=== PATIENT | female | born 1945 | race Caucasian/White ===

== ENCOUNTER 2018-08-16 09:14 | Emergency (ER) | payer OTHER ==
[~2018-08-16] VITALS: Ht 157.5 cm; Wt 139.3 kg
[2018-08-16] MEDS ORDERED: SYMBICORT80 MCG/4.1 INH (09:30)
[2018-08-16] MEDS ORDERED: PEPCID40 MG PO (09:30)
[2018-08-16] MEDS ORDERED: IBUPROFEN 800800 M1 PO (09:31)
[2018-08-16] MEDS ORDERED: ASPIR-LOW81 MG PO (09:31)
[2018-08-16] MEDS ORDERED: COZAAR 25 MG TA25 M1 PO (09:31)
[2018-08-16] MEDS ORDERED: HYDROCHLOROTHIA25 M1 PO (09:32)
[2018-08-16] MEDS ORDERED: SYNTHROID75 MCG PO (09:32)
[2018-08-16] MEDS ORDERED: LOVASTATIN 20 M20 MG PO (09:33)
[2018-08-16] MEDS ORDERED: FLUOXETINE HCL40 MG PO (09:33)
[2018-08-16] MEDS ORDERED: XANAX 0.25 MG0.25 MG PO (09:34)
[2018-08-16] MEDS ORDERED: VENTOLIN HFA 1818 GM INH (09:34)
[2018-08-16] MEDS ORDERED: XANAX 0.5 MG0.5 MG PO (09:34)
[2018-08-16 11:04] LABS: HEMOGLOBIN 13.4 gm/dL (12.0-15.0); MCH 32.5 pg (26.0-34.0); MCHC 33.4 g/dL (28.0-37.0); MCV 97.3 fL (80.0-100.0); MPV 7.8 fl. (7.2-11.1); NUCLEATED RBCS 0 /100WBC; PLATELET COUNT* 280 thou/uL (150-400); RBC 4.11 mil/uL (4.20-5.00); RDW-CV 13.3 % (10.5-14.5)
[2018-08-16 11:13] LABS: ANION GAP 10 mmol/L (7-16); BUN 26 mg/dL (7-18); CALCIUM 9.1 mg/dL (8.5-10.1); CHLORIDE 100 mmol/L (98-107); CO2 27 mmol/L (21-32); GLUCOSE 124 mg/dL (70-99); POTASSIUM 4.2 mmol/L (3.5-5.1); SODIUM 137 mmol/L (136-145)
[2018-08-16 11:19] LABS: ALBUMIN 3.4 g/dL (3.4-5.0); ALKALINE PHOSPHATASE 108 U/L (46-116); SGOT 16 U/L (15-37); SGPT 29 U/L (30-65); TOTAL BILIRUBIN 0.5 mg/dL (<0.1-1.0); TOTAL PROTEIN 8.4 g/dL (6.4-8.2); TROPONIN-I LEVEL <0.06 ng/mL (<0.06)
[2018-08-16 11:59] LABS: ABSOLUTE EOSINOPHILS 0.2 thou/uL (0.0-0.7); ABSOLUTE LYMPHOCYTES 2.6 thou/uL (0.8-5.3); ABSOLUTE MONOCYTES 0.9 thou/uL (0.0-1.2); ABSOLUTE NEUTROPHILS 13.4 thou/uL (1.6-8.1)
[2018-08-16 12:00] LABS: PLATELET ESTIMATE ADEQUATE
[2018-08-16] MEDS ORDERED: IPRAT-ALBUT 0.5-3 ML PO (13:27)
[2018-08-16 14:01] VITALS: BP 151/76
--- NOTE | 2018-08-16 17:03 | EKG ---
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1945 Requested By: Gayle Pulliam Order Number: [id number] MD: Jose Alfredo Cabral Measurements Intervals [place] Rate: 71 P: 20 MN: 155 QRS: 16 QRSD: 104 T: 36 QT: 386 QTc: 420 Interpretive Statements Sinus rhythm Abnormal R-wave progression, late transition No previous ECG available for comparison Electronically Signed On 08-16-2018 17:02:49 RIGGING HELPER by Jose Alfredo Cabral [email or web address] <ELECTRONICALLY SIGNED> By: Jose Alfredo Cabral MD, [facility] 08/16/18 1702 1106 1106 Jose Alfredo Cabral MD, FACC /EPI
== END 2018-08-16 14:02 | disposition home or self-care (01) ==
LOC: M.ERS 09:14
PROVIDERS: Personal Emergency Response Attendant
DX: J45.901 Unspecified asthma with (acute) exacerbation (principal); J06.9 Acute upper respiratory infection, unspecified; M79.7 Fibromyalgia; E03.9 Hypothyroidism, unspecified; K21.9 Gastro-esophageal reflux disease without esophagitis; F32.9 Major depressive disorder, single episode, unspecified; E78.5 Hyperlipidemia, unspecified; I10 Essential (primary) hypertension; E11.9 Type 2 diabetes mellitus without complications; F41.9 Anxiety disorder, unspecified

== ENCOUNTER 2019-03-12 12:36 | Emergency (ER) | payer OTHER ==
[~2019-03-12] VITALS: Ht 160 cm; Wt 158.8 kg
[~2019-03-12 12:36] MED LIST: ASPIR-LOW81 MG PO; COZAAR 25 MG TA25 M1 PO; FLUOXETINE HCL40 MG PO; HYDROCHLOROTHIA25 M1 PO; IBUPROFEN 800800 M1 PO; IPRAT-ALBUT 0.5-3 ML PO; LOVASTATIN 20 M20 MG PO; PEPCID40 MG PO; SYMBICORT80 MCG/4.1 INH; SYNTHROID75 MCG PO; VENTOLIN HFA 1818 GM INH; XANAX 0.25 MG0.25 MG PO; XANAX 0.5 MG0.5 MG PO
[2019-03-12 12:55] LABS: ABSOLUTE BASOPHILS 0.1 thou/uL (0.0-0.2); ABSOLUTE EOSINOPHILS 0.6 thou/uL (0.0-0.7); ABSOLUTE LYMPHOCYTES 1.9 thou/uL (0.8-5.3); ABSOLUTE MONOCYTES 0.6 thou/uL (0.0-1.2); ABSOLUTE NEUTROPHILS 7.7 thou/uL (1.6-8.1); BASOPHILS 0.7 %; EOSINOPHILS 5.4 %; HEMATOCRIT 34.6 % (37.0-47.0); HEMOGLOBIN 11.6 gm/dL (12.0-15.0); LYMPHOCYTES 17.7 %; MCH 32.2 pg (26.0-34.0); MCHC 33.6 g/dL (28.0-37.0); MCV 95.9 fL (80.0-100.0); MONOCYTES 5.1 %; MPV 8.1 fl. (7.2-11.1); NUCLEATED RBCS 0 /100WBC; PLATELET COUNT* 227 thou/uL (150-400); POLYS 71.1 %; RBC 3.61 mil/uL (4.20-5.00); RDW-CV 13.5 % (10.5-14.5); WBC 10.9 thou/uL (4.0-11.0)
[2019-03-12] MEDS ORDERED: VENTOLIN HFA 1818 GM INH (13:05)
[2019-03-12] MEDS ORDERED: CARDIZEM30 MG PO (13:06)
[2019-03-12 13:16] LABS: APTT 24.2 Seconds (25.0-31.3); PROTIME 10.5 Seconds (9.20-11.50)
[2019-03-12 13:21] LABS: ANION GAP 9 mmol/L (7-16); BUN 25 mg/dL (7-18); CALCIUM 9.3 mg/dL (8.5-10.1); CHLORIDE 104 mmol/L (98-107); CO2 28 mmol/L (21-32); GLUCOSE 112 mg/dL (70-99); POTASSIUM 3.9 mmol/L (3.5-5.1); SODIUM 141 mmol/L (136-145)
[2019-03-12 13:33] LABS: ALBUMIN 3.1 g/dL (3.4-5.0); ALKALINE PHOSPHATASE 103 U/L (46-116); SGOT 12 U/L (15-37); SGPT 23 U/L (30-65); TOTAL BILIRUBIN 0.4 mg/dL (<0.1-1.0); TOTAL PROTEIN 7.7 g/dL (6.4-8.2); TROPONIN-I LEVEL <0.06 ng/mL (<0.06)
[2019-03-12 13:49] LABS: URINE BILIRUBIN NEGATIVE (Negative); URINE BLOOD TRACE (Negative); URINE CLARITY CLEAR; URINE COLOR YELLOW; URINE GLUCOSE-RANDOM NEGATIVE (Negative); URINE KETONES NEGATIVE (Negative); URINE LEUKOCYTES-REFLEX NEGATIVE (Negative); URINE NITRITE-REFLEX NEGATIVE (Negative); URINE PROTEIN 2+ (Negative); URINE SPECIFIC GRAVITY 1.025 (1.005-1.030); URINE UROBILINOGEN 0.2 E.U./dl (0.2-1.0)
[2019-03-12 13:59] LABS: BACTERIA-REFLEX 1-9 Few /HPF (None Seen); CASTS None Seen /LPF (None Seen); CRYSTALS None Seen /LPF (None Seen); MUCUS None Seen strn/LPF (None Seen); SQUAMOUS 4-10 Moderate /LPF (0-3); URINE RBC 0-2 Rare /HPF (0-2); URINE WBC-REFLEX 0-5 Rare /HPF (0-5)
[2019-03-12] MEDS ORDERED: CARAFATE 1 GM TA1 GM PO (14:56)
[2019-03-12 15:01] VITALS: BP 139/70
--- NOTE | 2019-03-13 12:31 | EKG ---
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1945 Requested By: Claudia Dickinson Order Number: [id number] MD: Armani Vergara Measurements Intervals [place] Rate: 81 P: 65 LA: 195 QRS: 26 QRSD: 97 T: 22 QT: 482 QTc: 560 Interpretive Statements Sinus rhythm Supraventricular bigeminy RSR' in V1 or V2, right VCD or RVH Prolonged QT interval Compared to ECG 08/16/2018 11:06:57 Atrial premature complex(es) now present RSR' in V1 or V2 now present Prolonged QT interval now present Electronically Signed On 03-13-2019 12:31:23 CDT by Armani Vergara [email or web address] <ELECTRONICALLY SIGNED> By: Armani Vergara MD, FACC 03/13/19 1231 1241 1241 Armani Vergara MD, FAC /EPI
== END 2019-03-12 15:03 | disposition home or self-care (01) ==
LOC: M.ERS 12:36
PROVIDERS: Physician Assistant
DX: K21.9 Gastro-esophageal reflux disease without esophagitis (principal); M79.7 Fibromyalgia; E03.9 Hypothyroidism, unspecified; J45.909 Unspecified asthma, uncomplicated; F32.9 Major depressive disorder, single episode, unspecified; I10 Essential (primary) hypertension; E11.9 Type 2 diabetes mellitus without complications; E78.5 Hyperlipidemia, unspecified; F41.9 Anxiety disorder, unspecified; Z88.6 Allergy status to analgesic agent; Z88.8 Allergy status to other drugs, medicaments and biological substances

== ENCOUNTER → 2019-03-29 | Outpatient (CLI) | payer OTHER ==
[~2019-03-29] MED LIST changes: +CARAFATE 1 GM TA1 GM PO; +CARDIZEM30 MG PO
--- NOTE | 2019-03-29 13:51 | 2DMMODE ---
[place] [address] 2 D/M-MODE ECHOCARDIOGRAM Name: SEVEN CHILDRESS Room: [facility]#: [id number] Admission: 03/29/19 Attend Phys: Patricia Brennan Discharge: Date of : 49 Date of Service: 03/29/19 1350 Report #: [id number] THIS REPORT FOR: //name// APPROVED REPORT Study performed: 03/29/2019 10:40:55 EXAM: Comprehensive 2D, Doppler, and color-flow Echocardiogram Patient Location: Out-Patient BSA: 2.43 HR: 66 bpm BP: 133/73 mmHg Other Information Study Quality: Fair Indications Cardiomegaly 2D Dimensions IVSd: 13.45 (7-11mm) LVOT Diam: 20.33 (18-24mm) LVDd: 47.30 mm PWd: 12.04 (7-11mm) Ascending Ao: 32.45 (22-36mm) LVDs: 32.44 (25-40mm) Aortic Root: 24.82 mm Volumes Left Atrial Volume (Systole) LA ESV Index: 19.20 mL/m2 Aortic Valve AoV Peak Isidro.: 1.65 m/s AO Peak Gr.: 10.89 mmHg LVOT Max P.69 mmHg AO Mean Gr.: 6.32 mmHg LVOT Mean P.88 mmHg LVOT Max V: 1.47 m/s AO V2 VTI: 43.52 cm LVOT Mean V: 0.90 m/s DEYANIRA (VTI): 2.59 cm2 LVOT V1 VTI: 34.72 cm Mitral Valve E/A Ratio: 0.95 MV Decel. Time: 227.91 ms MV E Max Isidro.: 1.00 m/s MV PHT: 66.09 ms MVA (PHT): 3.33 [place]2 [place] [address] 2 D/M-MODE ECHOCARDIOGRAM Name: CHILDRESSSEVENNASRIN DALE Room: [facility]#: [id number] Admission: 03/29/19 Attend Phys: Patricia Brennan Discharge: Date of : 49 Date of Service: 03/29/19 1350 Report #: [id number] TDI E/Lateral E': 10.00 E/Medial E': 10.00 Medial E' Isidro.: 0.10 m/s Lateral E' Isidro.: 0.10 m/s Pulmonary Valve PV Peak Isidro.: 1.31 m/s PV Peak Gr.: 6.87 mmHg Tricuspid Valve RAP Estimate: 5.00 mmHg TR Peak Gr.: 30.25 mmHg RVSP: 35.25 mmHg PA Pressure: 35.25 mmHg Left Ventricle The left ventricle is normal size. There is normal LV segmental wall motion. Mild concentric left ventricular hypertrophy. Left ventricular systolic function is normal. The left ventricular ejection fraction is within the normal range. LVEF is 55-60%. Right Ventricle The right ventricle is normal size. The right ventricular systolic function is normal. Atria The left atrium size is normal. The right atrium size is normal. Aortic Valve The aortic valve is normal in structure. No aortic regurgitation is present. There is no aortic valvular stenosis. Mitral Valve The mitral valve is normal in structure. There is no mitral valve regurgitation noted. No evidence of mitral valve stenosis. Tricuspid Valve The tricuspid valve is normal in structure. Mild tricuspid regurgitation. Pulmonic Valve Pulmonic valve is not well visualized. There is no pulmonic valvular regurgitation. Great Vessels The aortic root is normal in size. IVC is [place] [address] 2 D/M-MODE ECHOCARDIOGRAM Name: SEVEN CHILDRESS Room: [facility]#: [id number] Admission: 03/29/19 Attend Phys: Patricia Brennan Discharge: Date of : 49 Date of Service: 03/29/19 1350 Report #: [id number] collapses >50% with inspiration. Pericardium There is no pericardial effusion. <Conclusion> Mild concentric left ventricular hypertrophy. LVEF is 55-60%. <ELECTRONICALLY SIGNED> By: Armani Vergara MD, [facility] 03/29/19 1350 1350 1350 Armani Vergara MD, [facility] /INF
== END ==
LOC: M.CRD 10:32
DX: I36.1 Nonrheumatic tricuspid (valve) insufficiency (principal); I51.7 Cardiomegaly

== ENCOUNTER 2019-04-12 11:42 | Emergency (ER) | payer OTHER ==
[~2019-04-12] VITALS: Ht 160 cm; Wt 157.8 kg
[2019-04-12] MEDS ORDERED: CARDIZEM CD120 MG PO (11:58)
[2019-04-12] MEDS ORDERED: TRIAMCINOLONE A80 G2 TOP (11:59)
[2019-04-12 12:26] LABS: ABSOLUTE BASOPHILS 0.1 thou/uL (0.0-0.2); ABSOLUTE EOSINOPHILS 0.4 thou/uL (0.0-0.7); ABSOLUTE LYMPHOCYTES 1.6 thou/uL (0.8-5.3); ABSOLUTE MONOCYTES 0.5 thou/uL (0.0-1.2); ABSOLUTE NEUTROPHILS 7.1 thou/uL (1.6-8.1); BASOPHILS 0.9 %; EOSINOPHILS 3.7 %; HEMATOCRIT 37.9 % (37.0-47.0); HEMOGLOBIN 12.8 gm/dL (12.0-15.0); LYMPHOCYTES 16.1 %; MCH 32.5 pg (26.0-34.0); MCHC 33.7 g/dL (28.0-37.0); MCV 96.4 fL (80.0-100.0); MPV 8.5 fl. (7.2-11.1); NUCLEATED RBCS 0 /100WBC; PLATELET COUNT* 250 thou/uL (150-400); POLYS 74.3 %; RBC 3.93 mil/uL (4.20-5.00); RDW-CV 13.3 % (10.5-14.5); WBC 9.6 thou/uL (4.0-11.0)
[2019-04-12 12:31] LABS: CALCIUM 9.4 mg/dL (8.5-10.1); CREATININE 1.1 mg/dL (0.6-1.3); POTASSIUM 4.2 mmol/L (3.5-5.1)
[2019-04-12 12:35] LABS: ALBUMIN 3.4 g/dL (3.4-5.0); TOTAL BILIRUBIN 0.6 mg/dL (<0.1-1.0)
[2019-04-12] MEDS ORDERED: PREDNISONE50 MG PO (14:27)
[2019-04-12] MEDS ORDERED: PERCOCET PO (14:27)
[2019-04-12] MEDS ORDERED: TRAMADOL 50 MG50 MG PO (14:30)
[2019-04-12 14:47] VITALS: BP 166/59
== END 2019-04-12 14:50 | disposition home or self-care (01) ==
LOC: M.ERS 11:42
PROVIDERS: Emergency Medicine Emergency Medical Services
DX: M54.42 Lumbago with sciatica, left side (principal); I10 Essential (primary) hypertension; E11.9 Type 2 diabetes mellitus without complications; M79.7 Fibromyalgia; E03.9 Hypothyroidism, unspecified; E78.5 Hyperlipidemia, unspecified; F41.9 Anxiety disorder, unspecified; I25.10 Atherosclerotic heart disease of native coronary artery without angina pectoris; K21.9 Gastro-esophageal reflux disease without esophagitis; J45.909 Unspecified asthma, uncomplicated; F32.9 Major depressive disorder, single episode, unspecified; Z88.6 Allergy status to analgesic agent; Z88.1 Allergy status to other antibiotic agents; Z88.5 Allergy status to narcotic agent; Z88.2 Allergy status to sulfonamides; Z88.8 Allergy status to other drugs, medicaments and biological substances

== ENCOUNTER 2021-02-17 12:10 | Emergency (ER) | payer OTHER ==
[~2021-02-17] VITALS: Ht 157.5 cm; Wt 158.8 kg
[~2021-02-17 12:10] MED LIST changes: +CARDIZEM CD120 MG PO; +PERCOCET PO; +PREDNISONE50 MG PO; +TRAMADOL 50 MG50 MG PO; +TRIAMCINOLONE A80 G2 TOP
[2021-02-17 12:31] LABS: ABSOLUTE BASOPHILS 0.1 thou/uL (0.0-0.2); ABSOLUTE LYMPHOCYTES 0.7 thou/uL (0.8-5.3); ABSOLUTE MONOCYTES 0.8 thou/uL (0.0-1.2); ABSOLUTE NEUTROPHILS 6.7 thou/uL (1.6-8.1); BASOPHILS 0.7 %; HEMATOCRIT 32.6 % (37.0-47.0); HEMOGLOBIN 11.5 gm/dL (12.0-15.0); LYMPHOCYTES 8.2 %; MCH 33.8 pg (26.0-34.0); MCHC 35.3 g/dL (28.0-37.0); MCV 95.9 fL (80.0-100.0); MPV 8.1 fl. (7.2-11.1); NUCLEATED RBCS 0 /100WBC; PLATELET COUNT* 182 thou/uL (150-400); POLYS 81.1 %; RDW-CV 13.2 % (10.5-14.5); WBC 8.3 thou/uL (4.0-11.0)
[2021-02-17 12:44] LABS: CALCIUM 8.5 mg/dL (8.5-10.1)
[2021-02-17 12:55] LABS: ALBUMIN 3.2 g/dL (3.4-5.0); TOTAL BILIRUBIN 0.5 mg/dL (<0.1-1.0); TOTAL PROTEIN 7.9 g/dL (6.4-8.2)
--- NOTE | 2021-02-17 14:43 | EKG ---
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: [facility] : 1945 Requested By: Mala Marino Order Number: [id number] MD: Shaun Ernandez Measurements Intervals [place] Rate: 72 P: 45 MA: 167 QRS: 23 QRSD: 94 T: 26 QT: 400 QTc: 438 Interpretive Statements Sinus rhythm Probable left atrial enlargement RSR' in V1 or V2, probably normal variant Compared to ECG 03/12/2019 12:41:30 Atrial premature complex(es) no longer present Right ventricular hypertrophy no longer present Prolonged QT interval no longer present Electronically Signed On 02-17-2021 14:43:28 CDT by Shaun Ernandez [email or web address] <ELECTRONICALLY SIGNED> By: Sahun Ernandez MD, [facility] 02/17/21 1443 1229 1229 Shaun Ernandez MD, [facility] /EPI
[2021-02-17] MEDS ORDERED: VENTOLIN HFA 1818 GM INH (15:04)
[2021-02-17 15:58] VITALS: BP 162/76
== END 2021-02-17 16:00 | disposition home or self-care (01) ==
LOC: M.ERS 12:10
PROVIDERS: Nurse Practitioner Family
DX: U07.1 COVID-19 (principal); M79.7 Fibromyalgia; E03.9 Hypothyroidism, unspecified; K21.9 Gastro-esophageal reflux disease without esophagitis; E78.5 Hyperlipidemia, unspecified; I10 Essential (primary) hypertension; E11.9 Type 2 diabetes mellitus without complications; E66.01 Morbid (severe) obesity due to excess calories; Z88.6 Allergy status to analgesic agent; Z88.5 Allergy status to narcotic agent; Z88.1 Allergy status to other antibiotic agents; Z88.8 Allergy status to other drugs, medicaments and biological substances; Z68.44 Body mass index [BMI] 60.0-69.9, adult

== ENCOUNTER 2021-02-22 12:37 | Inpatient (IN) | payer OTHER ==
[~2021-02-22] VITALS: Ht 157.5 cm; Wt 168.0 kg
[~2021-02-22 12:37] MED LIST changes: -ASPIR-LOW81 MG PO; +CHILDREN'S ASPI81 M1 PO
[2021-02-22 12:38] VITALS: BP 154/59
[2021-02-22 13:26] LABS: HEMATOCRIT 33.9 % (37.0-47.0); MCH 32.8 pg (26.0-34.0); MCHC 35.4 g/dL (28.0-37.0); MCV 92.8 fL (80.0-100.0); MPV 7.6 fl. (7.2-11.1); NUCLEATED RBCS 0 /100WBC; PLATELET COUNT* 176 thou/uL (150-400); RBC 3.65 mil/uL (4.20-5.00); RDW-CV 13.5 % (10.5-14.5); WBC 6.1 thou/uL (4.0-11.0)
[2021-02-22 13:35] LABS: CREATININE 1.1 mg/dL (0.6-1.3); POTASSIUM 3.1 mmol/L (3.5-5.1)
[2021-02-22 13:46] LABS: ALBUMIN 2.6 g/dL (3.4-5.0); TOTAL BILIRUBIN 0.5 mg/dL (<0.1-1.0); TOTAL PROTEIN 7.3 g/dL (6.4-8.2)
[2021-02-22 14:09] LABS: ABSOLUTE LYMPHOCYTES 0.5 thou/uL (0.8-5.3); ABSOLUTE MONOCYTES 0.4 thou/uL (0.0-1.2); ABSOLUTE NEUTROPHILS 5.1 thou/uL (1.6-8.1); PLATELET ESTIMATE ADEQUATE
[2021-02-22 18:35] VITALS: BP 136/50
[2021-02-22 20:00] VITALS: BP 169/64
[2021-02-23 00:24] VITALS: BP 140/44
[2021-02-23 04:52] VITALS: BP 167/65
--- NOTE | 2021-02-23 07:30 | NUR ---
CHANGE OF SHIFT BEDSIDE REPORT GIVEN PATIENT SEEN AT BEDSIDE, IN BED RESTING ASSUMED PATIENT CARE
[2021-02-23 08:00] VITALS: BP 147/52
[2021-02-23 12:00] VITALS: BP 130/46
[2021-02-23 12:25] LABS: CALCIUM 7.9 mg/dL (8.5-10.1); POTASSIUM 3.5 mmol/L (3.5-5.1)
[2021-02-23 16:00] VITALS: BP 126/48
[2021-02-23 18:46] LABS: APTT 25.1 Seconds (25.0-31.3); PROTIME 10.4 Seconds (9.20-11.50)
[2021-02-23 20:00] VITALS: BP 127/46
--- NOTE | 2021-02-23 22:56 | NUR ---
1700 REMDESIVIR EMPTY AND HANGING ON IV POLE. DAY SHIFT FORGOT TO SCAN
[2021-02-24] VITALS (15 sets, daily range): BP systolic 135–173; BP diastolic 44–75
--- NOTE | 2021-02-24 02:06 | NUR ---
PT ALERT ORIENTED. INITAL ASSESSMENT PT O2 SAT 82% ON 50 LITERS HIGH FLOW 100%. PT PLACED ON BIPAP NOW 88-89%. 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 UP TO BSC WITH ASSIST OF ONE. BARIATRIC BED PLACED IN ROOM. PT PREFERES TO SLEEP IN RECLINER.
--- NOTE | 2021-02-24 05:57 | NUR ---
PT WOKE UP THIS AM REQUESTING TO GET BIPAP OFF. PT STATED I CAN'T BREATHE WITH BIPAP ON. PT PLACED ON HEATED HIGH FLOW 50 LITERS 100% BUT COULD NOT MAINTAIN O2 SATS. DESATURATED TO 82%. PT GIVEN XANAX GIVEN PT PLACED BACK ON BIPAP. PT TEARFUL. REASURANCE PROVIDED BY RN AND APPRENTICE COOK.
[2021-02-24 07:46] LABS: ABSOLUTE LYMPHOCYTES 0.6 thou/uL (0.8-5.3); ABSOLUTE MONOCYTES 0.6 thou/uL (0.0-1.2); ABSOLUTE NEUTROPHILS 5.6 thou/uL (1.6-8.1); BASOPHILS 0.2 %; HEMATOCRIT 35.8 % (37.0-47.0); HEMOGLOBIN 12.4 gm/dL (12.0-15.0); LYMPHOCYTES 8.3 %; MCH 32.6 pg (26.0-34.0); MCHC 34.6 g/dL (28.0-37.0); MPV 7.4 fl. (7.2-11.1); NUCLEATED RBCS 0 /100WBC; PLATELET COUNT* 245 thou/uL (150-400); POLYS 82.5 %; RBC 3.81 mil/uL (4.20-5.00); RDW-CV 13.4 % (10.5-14.5); WBC 6.8 thou/uL (4.0-11.0)
[2021-02-24 07:59] LABS: ALBUMIN 2.6 g/dL (3.4-5.0); CALCIUM 8.2 mg/dL (8.5-10.1); CREATININE 1.3 mg/dL (0.6-1.3); MAGNESIUM 2.1 mg/dL (1.8-2.4); POTASSIUM 3.5 mmol/L (3.5-5.1); TOTAL BILIRUBIN 0.4 mg/dL (<0.1-1.0); TOTAL PROTEIN 7.4 g/dL (6.4-8.2)
--- NOTE | 2021-02-24 09:52 | EKG ---
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1945 Requested By: Agustin Mendez Order Number: [id number] MD: Armani Vergara Measurements Intervals [place] Rate: 66 P: 45 GA: 160 QRS: 23 QRSD: 102 T: -11 QT: 443 QTc: 465 Interpretive Statements Sinus rhythm Borderline repolarization abnormality Compared to ECG 02/17/2021 12:29:43 No significant changes Electronically Signed On 02-24-2021 9:51:51 CDT by Armani Vergara [email or web address] <ELECTRONICALLY SIGNED> By: Armani Vergara MD, [facility] 02/24/21 0951 1253 1253 Armani Vergara MD, [facility] /EPI
[2021-02-24 13:53] LABS: BE -1.9 mmol/L (-2 to +3); PCO2 39.9 mmHg (35.0-45.0); PO2 68.7 mmHg (75.0-100.0); pH 7.379 (7.340-7.450)
--- NOTE | 2021-02-24 16:41 | CON ---
[address] [address] CONSULTATION Name: SEVEN CHILDRESS Room: [address] IN .R.#: [id number] Admission: 02/22/21 Attend Phys: Tila Arthur MD Discharge: Date of : 49 Report #: [id number] THIS REPORT FOR: cc: Patricia Brennan MD, Jennifer MD Pervez, Adeel MD ~ DATE OF CONSULTATION: 02/23/2021 REQUESTING PHYSICIAN: Dr. Arthur. INDICATION FOR CONSULTATION: Acute hypoxemic respiratory failure secondary to COVID-19. HISTORY OF PRESENT ILLNESS: This is a 75 years old female. She is a lifetime nonsmoker. She does have morbid obesity, body mass index is 64. The patient does have a history of bronchial asthma and diabetes, and she states that she is a Adventism. The patient had initially presented to the Emergency Room on the ____ was diagnosed with COVID-19. The patient, at that time, was stable on room air and was discharged home. The patient is now admitted with the development of acute respiratory failure secondary to COVID-19. The patient is now noted to be saturating only 70% on room air initially. She initially was placed on 15 liters oxygen via a high-flow nasal cannula and was maintaining O2 saturations in the low 90s with this. Since yesterday, there has been worsening in the patient's oxygen needs. Currently, we are up to 100% FiO2 on a heated high-flow nasal oxygen and she is barely saturating in the low 90s. She still does remain comfortable. She is hemodynamically stable and she is sitting comfortably in a chair. She does state that she is short of breath. She is also coughing, bringing up only small amounts of sputum. No chest pain. She has had a fever. There is no runny nose or sore throat. No swelling of lower extremities or calf pain. The patient does state that she has had changes in her appetite, has been having night sweats, has had malaise and weakness. She has had disturbed sleep at night as well as sleepiness during the day. There is no change in these, known recently. REVIEW OF SYSTEMS: For 12 points is negative except as mentioned above. PAST MEDICAL HISTORY: Morbid obesity, body mass index 64, bronchial asthma, diabetes, gastroesophageal reflux disease, fibromyalgia, hypothyroidism, depression, hyperlipidemia, hypertension, anxiety. She appears to have significant obstructive sleep apnea, it is not known to me as to whether this is previously diagnosed or not. The patient did not describe use of a positive airway pressure device or oxygen at home. Her last echocardiogram is from 2018, shows a left ventricular ejection fraction of 55-60%, [place] [address] CONSULTATION Name: SEVEN CHILDRESS Room: [address] IN .R.#: [id number] Admission: 02/22/21 Attend Phys: Tila Arthur MD Discharge: Date of : 49 Report #: [id number] is 35. SOCIAL HISTORY: Lifetime nonsmoker. No known history of heavy alcohol use or illegal drug use. The patient told me that she is a Adventism. CURRENT MEDICATIONS: List in [facility] reviewed. HOME MEDICATIONS: List also in [facility] reviewed. FAMILY HISTORY: No pertinent family history is known at this time. ALLERGIES: THERE ARE VARIOUS ALLERGIES LISTED ON THE RECORDS INCLUDING CELEXA, ZOLOFT, CIPRO, VICODIN, CODEINE AND LISINOPRIL. IT IS NOT KNOWN TO ME TO WHETHER THE PATIENT IN FACT IS ALLERGIC TO ALL OF THESE MEDICATIONS. PHYSICAL EXAMINATION:: GENERAL: She is alert, awake and oriented. VITAL SIGNS: Has a pulse of 60 and a blood pressure of 130/50. She was saturating 92% on heated high-flow nasal cannula 55 liters flow, 100% oxygen. Respiratory rate was 20-22, afebrile with a temperature of 36.4. Body mass index of 64. She does appear to be morbidly obese. HEENT: Head is normocephalic and atraumatic. Pupils are equal and reactive. There is no throat erythema. Narrow airway, Mallampati 4. NECK: Does not show raised JVP, asymmetry, mass or lymph nodes. CHEST: Symmetrical expansion on inspection and palpation. On auscultation, breath sounds are bilaterally equal, but decreased. I do not hear any added sounds. HEART: Regular. There is no murmur. ABDOMEN: Soft and nontender. EXTREMITIES: Lower extremities, no edema, no calf tenderness. SKIN: Dry and intact. NEUROLOGIC: Moves all extremities bilaterally equally and spontaneously with no focal deficit identified. LABORATORY DATA: The patient's lab work is in [facility]. This is reviewed. I added a basic metabolic profile to the potassium level done this morning and reviewed it. I ordered coagulation studies as well as a D-dimer now and these are pending. I ordered a repeat chest x-ray now and this is pending. Chest x-ray yesterday shows extensive bilateral infiltrates consistent with ARDS secondary to COVID-19, new since the 12th in [facility] reviewed. Her COVID-19 antigen is positive. ASSESSMENT AND PLAN: 1. Acute hypoxemic respiratory failure secondary to COVID-19. Recommend [facility] [address] [place] [address] CONSULTATION Name: SEVEN CHILDRESS Room: [address] IN M.R.#: [id number] Admission: 02/22/21 Attend Phys: Tila Arthur MD Discharge: Date of : 49 Report #: [id number] continuing to titrate oxygen. I strongly recommended that she should wear a BiPAP while asleep. It appears to me that the patient has fairly significant previously undiagnosed obstructive sleep apnea. The patient, however, declined use of BiPAP at this time against my advice. I would recommend prone positioning and if possible, continue out of bed to chair. If not prone, then recommend on sides, recommend avoiding sleeping supine. 2. COVID-19 with acute respiratory distress syndrome. Recommend continuing with dexamethasone. I will go ahead and give her an additional dose now. We will reassess dexamethasone dose tomorrow. Agree with remdesivir and Actemra as already ordered by Dr. Arthur. I discussed with the patient regarding the use of convalescent plasma. The patient responded by stating that she is a Adventism. 3. Bronchial asthma. See discussion above. Also, agree with Salty. We will go ahead and give her Singulair as well. 4. Morbid obesity with obstructive sleep apnea. It appears to me that she has obstructive sleep apnea, not previously diagnosed. The patient is declining BiPAP against my advice. 5. Evaluation for thromboembolic phenomena. I will get coagulation studies, including a D-dimer now. I increased Lovenox for now to intermediate dose. If the D-dimer is elevated, then I would recommend proceeding with venous Dopplers and in that case, we will also assess as to whether the patient can be safely transported for a CAT scan. She will be high risk for transport though at this time. The other option, in case the D-dimer comes back elevated, would be to increase Lovenox to full dose empirically pending further evaluation. Regardless, we will go ahead and obtain an echocardiogram as well. 6. Fluid and electrolytes. We will run her on the sulfate drier machine operator side as the potassium has been on the lower side. I ordered one dose of Aldactone. We will assess from more diuresis including Lasix tomorrow. 7. History of diabetes. 8. Adventism. 9. Gastroesophageal reflux disease. Proton pump inhibitor. 10. Clostridium difficile prophylaxis, Lactinex. Thanks for this consultation. <ELECTRONICALLY SIGNED> By: Aiden Hill MD 02/24/21 1641 1624 [id number] Hill MD /nt
--- NOTE | 2021-02-24 16:56 | 2DMMODE ---
[place] [address] 2 D/M-MODE ECHOCARDIOGRAM Name: SEVEN CHILDRESS Room: [address] IN [facility]#: [id number] Admission: 02/22/21 Attend Phys: Tila Arthur, Discharge: Date of : 49 Date of Service: 02/24/21 1656 Report #: [id number] THIS REPORT FOR: cc: Patricia Brennan MD, Jennifer MD Blick,Armani Friedman MD [facility] ~ APPROVED REPORT Study performed: 02/24/2021 16:15:30 EXAM: Comprehensive 2D, Doppler, and color-flow Echocardiogram Patient Location: In-Patient Room #: [facility] Status: routine BSA: 2.43 HR: 60 bpm BP: 141/52 mmHg Rhythm: NSR Other Information Study Quality: Fair Indications Dyspnea 2D Dimensions IVSd: 12.65 (7-11mm) LVOT Diam: 20.15 (18-24mm) LVDd: 54.11 mm PWd: 12.46 (7-11mm) Ascending Ao: 27.88 (22-36mm) LVDs: 24.93 (25-40mm) Aortic Root: 28.14 mm Volumes Left Atrial Volume (Systole) LA ESV Index: 32.00 mL/m2 Aortic Valve AoV Peak Isidro.: 1.82 m/s AO Peak Gr.: 13.27 mmHg LVOT Max P.02 mmHg AO Mean Gr.: 6.57 mmHg LVOT Mean P.74 mmHg LVOT Max V: 1.66 m/s AO V2 VTI: 44.37 cm LVOT Mean V: 1.10 m/s DEYANIRA (VTI): 2.75 cm2 LVOT V1 VTI: 38.24 [place] [address] 2 D/M-MODE ECHOCARDIOGRAM Name: SEVEN CHILDRESS Room: [address] IN ..#: [id number] Admission: 02/22/21 Attend Phys: Tila Arthur, Discharge: Date of : 49 Date of Service: 02/24/21 1656 Report #: [id number] Mitral Valve E/A Ratio: 1.09 MV Decel. Time: 207.19 ms MV E Max Isidro.: 1.34 m/s MV PHT: 60.09 ms MVA (PHT): 3.66 cm2 TDI E/Lateral E': 10.31 E/Medial E': 11.17 Medial E' Isidro.: 0.12 m/s Lateral E' Isidro.: 0.13 m/s Pulmonary Valve PV Peak Isidro.: 1.45 m/s PV Peak Gr.: 8.43 mmHg Left Ventricle The left ventricle is normal size. There is normal LV segmental wall motion. Mild concentric left ventricular hypertrophy. Left ventricular systolic function is normal. The left ventricular ejection fraction is within the normal range. LVEF is 55-60%. The left ventricular diastolic function is normal. Right Ventricle The right ventricle is normal size. The right ventricular systolic function is normal. Atria Left atrium is mildly dilated. The right atrium size is normal. Aortic Valve The Aortic valve is sclerotic. No aortic regurgitation is present. There is no aortic valvular stenosis. Mitral Valve The mitral valve is normal in structure. Mild mitral annular calcification. There is no mitral valve regurgitation noted. No evidence of mitral valve stenosis. Tricuspid Valve The tricuspid valve is normal in structure. Unable to assess PA pressure. Trace tricuspid regurgitation. Pulmonic Valve The pulmonary valve is normal in structure. There is no pulmonic valv[place] [address] 2 D/M-MODE ECHOCARDIOGRAM Name: SEVEN CHILDRESS Room: [address] IN ..#: [id number] Admission: 02/22/21 Attend Phys: Tila Arthur, Discharge: Date of : 49 Date of Service: 02/24/21 1656 Report #: [id number] Great Vessels The aortic root is normal in size. IVC is normal in size and collapses >50% with inspiration. Pericardium There is no pericardial effusion. <Conclusion> Mild concentric left ventricular hypertrophy. LVEF is 55-60%. Left atrium is mildly dilated. The Aortic valve is sclerotic. <ELECTRONICALLY SIGNED> By: Armani Vergara MD, [facility] 02/24/21 1656 165 55 Armani Vergara MD, FACC /INF
[2021-02-24 18:55] LABS: CALCIUM 8.3 mg/dL (8.5-10.1); CREATININE 1.2 mg/dL (0.6-1.3); POTASSIUM 3.5 mmol/L (3.5-5.1)
[2021-02-25] VITALS (44 sets, daily range): BP systolic 139–185; BP diastolic 51–74
[2021-02-25 04:52] LABS: HEMATOCRIT 35.6 % (37.0-47.0); HEMOGLOBIN 12.5 gm/dL (12.0-15.0); MCH 32.4 pg (26.0-34.0); MCV 92.5 fL (80.0-100.0); MPV 8.2 fl. (7.2-11.1); NUCLEATED RBCS 0 /100WBC; PLATELET COUNT* 271 thou/uL (150-400); RBC 3.85 mil/uL (4.20-5.00); RDW-CV 13.4 % (10.5-14.5); WBC 8.6 thou/uL (4.0-11.0)
[2021-02-25 05:01] LABS: ALBUMIN 2.5 g/dL (3.4-5.0); CALCIUM 8.3 mg/dL (8.5-10.1); CREATININE 1.2 mg/dL (0.6-1.3); MAGNESIUM 1.9 mg/dL (1.8-2.4); POTASSIUM 3.3 mmol/L (3.5-5.1); TOTAL BILIRUBIN 0.4 mg/dL (<0.1-1.0); TOTAL PROTEIN 7.2 g/dL (6.4-8.2)
--- NOTE | 2021-02-25 06:28 | NUR ---
ASSUMED CARE AT 1900H, ON BIPAP AT 100% AND 02 SAT 82%-91%. ORIENTED AND WEAK. ON PRECEDEX AND TURNED OFF DUE TO PT WAS MORE DROWSY. PULMO INFORMED WITH ORDERS MADE AND CARRIED OUT. FAMILY UPDATE GIVEN. PT STILL 02 SAT <88%, CALLED PULMO AGAIN WITH ORDERS CARRIED OUT. PT AGREED TO BE INTUBATED AND DO CPR IN CASE NEEDED. SATURATION DECREASED WHEN PT ASLEEP. CONTINUE MONITORING AND TOWARDS GOALS.
[2021-02-25 08:21] LABS: BE 2.7 mmol/L (-2 to +3); PO2 65.4 mmHg (75.0-100.0); pH 7.445 (7.340-7.450)
[2021-02-25 09:08] LABS: ABSOLUTE MONOCYTES 0.4 thou/uL (0.0-1.2); ABSOLUTE NEUTROPHILS 7.1 thou/uL (1.6-8.1)
[2021-02-25 09:09] LABS: PLATELET ESTIMATE ADEQUATE
--- NOTE | 2021-02-25 09:41 | NUR ---
Patient admitted for respiratory failure and COVID 19. Due to COVID isolation CM Dir reached out to (Ran). Per , patient lives in a single home house with her and stepson. No stairs in the home. Patient was independent with ADLs and was doing some driving prior to admission. No hx of DME, O2, bipap/cpap, BHS, dialysis and infusion therapy. No hx of HH, SNF or rehab. PCP is Patricia Brennan ([place], [place]). Per nurse, patient may need to be intubated and patient is agreeable if needed. Per , patient does not have DPOA paperwork in place. Asked both nursing and to ask patient if she would like to complete paperwork with CM. Awaiting response from both nursing and . Patient remains on bipap at this time at 100% FiO2. CM to continue to follow
--- NOTE | 2021-02-25 10:21 | NUR ---
RIGHT CEPHALIC VESSEL ACCESED FOR 5 [place] TRIPLE LUMEN PICC. LINE PRE-TRIMMD TO 42CM AND ADVANCED TO THE ZERO ANAYELI WITH MINOR RESISTANCE MET. UPPER ARM CIRCUMFERENCE ABOVE INSERTION SITE = 19 1/2". SHERLOCK MAGNET AND 3CG CONFIRMATION OF TIP TERMINATION AT THE CAVOATRIAL JUNCTION APPRECIATED. LINE WAS MANIPULATED WITH SEVERAL ATTEMPTS BEFORE 3CG WAS POSITIVE FOR MAXIMUM P. GUIDE WIRE REMOVED, LINE FLUSHED AND INSERTION SITE DRESSED. REPORT GIVEN TO VIDHI COLBERT.
[2021-02-25 13:21] LABS: CALCIUM 8.4 mg/dL (8.5-10.1); CREATININE 1.2 mg/dL (0.6-1.3); POTASSIUM 3.4 mmol/L (3.5-5.1)
[2021-02-25 13:26] LABS: APTT 26.9 Seconds (25.0-31.3); INR 1.1; PROTIME 11.9 Seconds (9.20-11.50)
[2021-02-26] VITALS (29 sets, daily range): BP systolic 137–220; BP diastolic 55–144
[2021-02-26 03:25] LABS: CALCIUM 8.4 mg/dL (8.5-10.1); CREATININE 1.1 mg/dL (0.6-1.3); POTASSIUM 3.9 mmol/L (3.5-5.1)
[2021-02-26 03:28] LABS: HEMATOCRIT 36.9 % (37.0-47.0); HEMOGLOBIN 12.8 gm/dL (12.0-15.0); MCH 32.7 pg (26.0-34.0); MCHC 34.8 g/dL (28.0-37.0); MCV 93.8 fL (80.0-100.0); MPV 7.9 fl. (7.2-11.1); RBC 3.93 mil/uL (4.20-5.00); RDW-CV 13.3 % (10.5-14.5); WBC 9.5 thou/uL (4.0-11.0)
--- NOTE | 2021-02-26 04:09 | NUR ---
ASSUMED CARE AT 1910H, ON BIPAP AT 100% AND TOLERATED. PT WAS ANXIOUS, PRN XANAX GIVEN. ORAL FLUIDS TOLERATED WITH ASPIRATION PRECAUTION. NO FEVER AND DISTRESS. CONTINUE MONITORING AND TOWARDS GOALS.
--- NOTE | 2021-02-26 11:46 | NUR ---
ICU Rounds: DPOA paperwork completed yesterday for patient. Patient designated (Ran) for Medical DPOA. Copy placed on chart. Patient is doing better today per nursing. Patient up to chair at this time on Bipap (FiO2 85%). Pulm following. Continued precedex. steroids and remdesevir. Xanax given prn for anxiety.
--- NOTE | 2021-02-26 18:51 | NUR ---
Pt assisted up to recliner this am. Pt weak, but once in the chair tolerated well. Has been in recliner for remainder of shift. On HHF for approx 1-2 hours this afternoon; O2 sats low-mid 90s on 55L @ 100%. Pt became anxious and SOA; requested to be placed back on BIPAP. FIO2 with BIPAP titrated from 100% to 85%; O2 sats mid 90s. VSS. Dr. Hill ordered that pt not eat until tolerating HHF and O2 sats stable while on it. Taking meds with H2O well. Will continue to monitor.
[2021-02-27] VITALS (24 sets, daily range): BP systolic 116–160; BP diastolic 52–74
--- NOTE | 2021-02-27 06:00 | NUR ---
PT HAS BEEN RESTING THROUGH THE NIGHT SITTING UP IN THE CHAIR. RR IN THE 20'S. MAINTAINING 02 SAT IN THE 90S. OFFERED TO HELP PT STAND/GET IN TO BED OR JUST STAND TO REPOSITION. DECLINED. ENCOURAGED FLUIDS WHEN IN ROOM. SR/SB UPPER 50'S ON MONITOR. PT STABLE ON BIPAP, BUT ONLY ABLE TO COME OFF FOR SHORT AMOUNTS OF TIME TO TAKE MEDICATION. RESTED WELL THROUGH THE NIGHT. CALL LIGHT IN REACH. ENHANCED PRECAUTIONS MAINTAINED. FREQ ROUNDING FOR SAFETY.
[2021-02-27 06:18] LABS: HEMATOCRIT 36.8 % (37.0-47.0); HEMOGLOBIN 12.6 gm/dL (12.0-15.0); MCHC 34.1 g/dL (28.0-37.0); MCV 93.9 fL (80.0-100.0); MPV 8.2 fl. (7.2-11.1); RBC 3.92 mil/uL (4.20-5.00); RDW-CV 13.4 % (10.5-14.5); WBC 12.9 thou/uL (4.0-11.0)
[2021-02-27 06:23] LABS: CALCIUM 8.3 mg/dL (8.5-10.1); CREATININE 1.1 mg/dL (0.6-1.3)
--- NOTE | 2021-02-27 09:38 | NUR ---
ICU Rounds: Patient currently on Bipap (85% FiO2). Plan to trial HHF today. Continued steroids and abx. Patient up to chair at this time.
[2021-02-27] MEDS ORDERED: IBU800 MG PO (14:53)
[2021-02-28] VITALS (21 sets, daily range): BP systolic 51–199; BP diastolic 36–86
[2021-02-28 05:01] LABS: ABSOLUTE BASOPHILS 0.1 thou/uL (0.0-0.2); ABSOLUTE LYMPHOCYTES 0.4 thou/uL (0.8-5.3); ABSOLUTE MONOCYTES 0.6 thou/uL (0.0-1.2); ABSOLUTE NEUTROPHILS 14.2 thou/uL (1.6-8.1); BASOPHILS 0.6 %; HEMATOCRIT 37.9 % (37.0-47.0); HEMOGLOBIN 12.8 gm/dL (12.0-15.0); LYMPHOCYTES 2.6 %; MCH 31.7 pg (26.0-34.0); MCHC 33.8 g/dL (28.0-37.0); MCV 93.8 fL (80.0-100.0); MONOCYTES 3.7 %; MPV 8.3 fl. (7.2-11.1); NUCLEATED RBCS 0 /100WBC; PLATELET COUNT* 283 thou/uL (150-400); POLYS 93.1 %; RBC 4.04 mil/uL (4.20-5.00); RDW-CV 13.5 % (10.5-14.5); WBC 15.2 thou/uL (4.0-11.0)
[2021-02-28 05:24] LABS: ALBUMIN 2.8 g/dL (3.4-5.0); CALCIUM 8.1 mg/dL (8.5-10.1); CREATININE 1.1 mg/dL (0.6-1.3); MAGNESIUM 2.4 mg/dL (1.8-2.4); POTASSIUM 3.9 mmol/L (3.5-5.1); TOTAL BILIRUBIN 0.5 mg/dL (<0.1-1.0); TOTAL PROTEIN 6.7 g/dL (6.4-8.2)
--- NOTE | 2021-02-28 12:34 | NUR ---
ICU Rounds: Patient currently on Bipap (FiO2 95%). Continued steroids and abx. 1 of 5 doses of remdesevir given. 2nd dose tonight. Ongoing assessment with therapies. Patient has to be reminded to breath with exertion to not drop sats. Patient staying in ICU through the weekend.
[2021-02-28 14:16] LABS: BE -0.7 mmol/L (-2 to +3); PO2 61.3 mmHg (75.0-100.0); pH 7.426 (7.340-7.450)
--- NOTE | 2021-02-28 15:17 | 2DMMODE ---
[place] [address] 2 D/M-MODE ECHOCARDIOGRAM Name: SEVEN CHILDRESS Room: 002-P [facility] IN ..#: [id number] Admission: 02/22/21 Attend Phys: Tila Arthur, Discharge: Date of : 49 Date of Service: 02/28/21 1517 Report #: [id number] THIS REPORT FOR: cc: Patricia Brennan MD, Jennifer MD Blick,Armani Friedman MD [facility] ~ APPROVED REPORT Study performed: 02/28/2021 14:37:42 EXAM: Limited 2D, Doppler, and color-flow Echocardiogram Patient Location: In-Patient Room #: 002 Status: routine BSA: 2.43 HR: 61 bpm Rhythm: NSR Other Information Study Quality: Adequate Indications REASSESS PA SYSTOLIC Volumes Left Atrial Volume (Systole) LA ESV Index: 30.30 mL/m2 Tricuspid Valve RAP Estimate: 5.00 mmHg TR Peak Gr.: 43.24 mmHg RVSP: 48.00 mmHg PA Pressure: 48.00 mmHg Left Ventricle The left ventricle is normal size. There is normal LV segmental wall motion. Mild concentric left ventricular hypertrophy. The left ventricular systolic function is normal. The left ventricular ejection fraction is within the normal range. LVEF is 55-60%. Right Ventricle The right ventricle is normal size. The right ventricular systolic [place] [address] 2 D/M-MODE ECHOCARDIOGRAM Name: SEVEN CHILDRESS Room: [address] IN .R.#: [id number] Admission: 02/22/21 Attend Phys: Tila Arthur, Discharge: Date of : 49 Date of Service: 02/28/21 1517 Report #: [id number] The left atrium size is normal. The right atrium size is normal. Aortic Valve Mild aortic valve sclerosis. No aortic regurgitation is present. There is no aortic valvular stenosis. Mitral Valve The mitral valve is normal in structure. There is no mitral valve regurgitation noted. Tricuspid Valve The tricuspid valve is normal in structure. Trace tricuspid regurgitation. estimated pa pressure 50 mm Hg Pulmonic Valve Pulmonic valve is not well visualized. Great Vessels The aortic root is normal in size. IVC is normal in size and collapses >50% with inspiration. Pericardium There is no pericardial effusion. <Conclusion> The left ventricular systolic function is normal. The left ventricular ejection fraction is within the normal range. Trace tricuspid regurgitation. estimated pa pressure 50 mm Hg <ELECTRONICALLY SIGNED> By: Armani Vergara MD, [facility] 02/28/21 1517 16 16 Armani Vergara MD, FACC /INF
[2021-02-28 15:49] LABS: CALCIUM 8.1 mg/dL (8.5-10.1); CREATININE 1.1 mg/dL (0.6-1.3); MAGNESIUM 2.4 mg/dL (1.8-2.4); POTASSIUM 3.9 mmol/L (3.5-5.1)
[2021-03-01] VITALS (11 sets, daily range): BP systolic 127–153; BP diastolic 48–76
--- NOTE | 2021-03-01 04:38 | NUR ---
ASSUMED CARE AT 1910H, ON BIPAP AT 100%. PT STILL DESAT WHEN MOVING HER. WHEN ASLEEP 02 SAT AT 86-89%. NO FEVER NOTED. DEEP BREATHING EXERCISE ENCOURGE. COMPLAIN OF PAIN, PRN MED GIVEN. CONTINUE MONITORING AND TOWARDS GOALS.
[2021-03-01 09:24] LABS: CALCIUM 8.3 mg/dL (8.5-10.1); POTASSIUM 4.5 mmol/L (3.5-5.1)
[2021-03-02] VITALS (15 sets, daily range): BP systolic 95–140; BP diastolic 38–69
--- NOTE | 2021-03-02 04:36 | NUR ---
ASSUMED CARE AT 1910H, ON BIPAP AT 100% WITH O2 SAT OF 88-94%. STILL DESATING WHEN MOVED. PT WAS TACHYPNIC, PRECEDEX RE-STARTED. ORAL MEDS TOLERATED WITH ASPIRATION PRECAUTION. NO FEVER. CONTINUE MONITORING AND TOWARDS GOALS. PRECEDEX AT .1MICS.
[2021-03-02 10:11] LABS: HEMATOCRIT 38.8 % (37.0-47.0); HEMOGLOBIN 13.1 gm/dL (12.0-15.0); MCHC 33.9 g/dL (28.0-37.0); MCV 94.3 fL (80.0-100.0); MPV 8.6 fl. (7.2-11.1); NUCLEATED RBCS 0 /100WBC; PLATELET COUNT* 214 thou/uL (150-400); RBC 4.11 mil/uL (4.20-5.00); RDW-CV 13.6 % (10.5-14.5); WBC 18.2 thou/uL (4.0-11.0)
[2021-03-02 10:27] LABS: CALCIUM 8.1 mg/dL (8.5-10.1); CREATININE 0.9 mg/dL (0.6-1.3); POTASSIUM 4.8 mmol/L (3.5-5.1)
[2021-03-02 11:18] LABS: ABSOLUTE LYMPHOCYTES 0.9 thou/uL (0.8-5.3); ABSOLUTE NEUTROPHILS 17.3 thou/uL (1.6-8.1); PLATELET ESTIMATE ADEQUATE
[2021-03-02 17:12] LABS: BE -3.8 mmol/L (-2 to +3); PCO2 42.4 mmHg (35.0-45.0); pH 7.332 (7.340-7.450)
[2021-03-02 19:57] LABS: NT-PRO BRAIN NAT PEPTIDE 921 pg/mL (<300); TROPONIN-I LEVEL <0.06 ng/mL (<0.06)
[2021-03-02 19:58] LABS: BE -4.5 mmol/L (-2 to +3); PCO2 42.4 mmHg (35.0-45.0); pH 7.321 (7.340-7.450)
[2021-03-03] VITALS (76 sets, daily range): BP systolic 73–162; BP diastolic 32–59
[2021-03-03 01:48] LABS: BE -15.1 mmol/L (-2 to +3)
[2021-03-03 01:50] LABS: PCO2 137.2 mmHg (35.0-45.0); pH 6.833 (7.340-7.450)
[2021-03-03 01:51] LABS: PO2 131.5 mmHg (75.0-100.0)
--- NOTE | 2021-03-03 04:21 | NUR ---
ASSUMED CARE AT 1900H, ON VENT AT 100% WITH SAT OF 87%. ON DILAUDED 1MG/HR, VERSED 10MG/HR AND PROPOFOL AT 50MICS. ABG TAKEN AND INFORMED HIMS AND CARPET YARN WINDER OPERATOR WITH ORDERS MADE AND CARRIED OUT. NIMBEX STARTED AT FIX DOSE OF 37.5MG/HR. PT NOT TAKING ENOUGH TIDAL VOLUME, PUMLO INFORMED AND VENT SETTING CHANGED. UPDATE GIVEN TO HUYEN(G-DTR). PULMO AWARE PT'S ABG AT 2AM , VENT SETTING CHANGED AND BICARB GIVEN. PT HAD HYPOTENSION, SEDATION DECREASED AND LEVO STARTED PER HIMS. CONTINUE MONITORING AND TOWARDS GOALS. VENT SETTING PC OF 16, RR 26, PEEP OF 18 AND FIO2 OF 100%. VERSED AT 6MG/HR, DILAUDED 0.5MG/HR, PROPOFOL 10MICS AND LEVO AT 2MICS.
[2021-03-03 04:27] LABS: HEMATOCRIT 41.9 % (37.0-47.0); HEMOGLOBIN 13.6 gm/dL (12.0-15.0); MCH 31.8 pg (26.0-34.0); MCHC 32.4 g/dL (28.0-37.0); MCV 98.3 fL (80.0-100.0); MPV 8.9 fl. (7.2-11.1); RBC 4.26 mil/uL (4.20-5.00); RDW-CV 13.6 % (10.5-14.5)
[2021-03-03 04:54] LABS: CALCIUM 7.5 mg/dL (8.5-10.1); CREATININE 1.4 mg/dL (0.6-1.3); POTASSIUM 5.3 mmol/L (3.5-5.1)
[2021-03-03 05:39] LABS: WBC 41.8 thou/uL (4.0-11.0)
--- NOTE | 2021-03-03 08:33 | NUR ---
PT CONTINUED TO BE ON BIPAP AT 100% STATTING IN THE UPPER 80'S AT REST, UNABLE TO TOLORATE ANY MOVEMENT. WE INTUBATED LATE AFTERNOON, PT CONSENTED AND GRANDAUGHTER UPDATED VIA PHONE. -- 03/02/21 LATE ENTRY
[2021-03-03 10:27] LABS: BE -10.9 mmol/L (-2 to +3)
[2021-03-03 10:30] LABS: PCO2 102.8 mmHg (35.0-45.0); pH 6.976 (7.340-7.450)
[2021-03-03 12:32] LABS: BE -9.2 mmol/L (-2 to +3); PO2 60.2 mmHg (75.0-100.0)
[2021-03-03 12:34] LABS: PCO2 67.6 mmHg (35.0-45.0); pH 7.118 (7.340-7.450)
--- NOTE | 2021-03-03 15:42 | NUR ---
ICU Rounds: Patient intubated this morning due to worsening O2 needs. FiO2 90% and Peep 18. Family aware of intubation. Continued abx, levo, nimbex, versed, propofol, dilaudid and steroids. 5th dose of remdesevir to be given today. DPOA is (Ran). CM to continue to follow
[2021-03-03 17:47] LABS: BE -6.5 mmol/L (-2 to +3)
[2021-03-03 17:51] LABS: PCO2 59.5 mmHg (35.0-45.0); PO2 59.3 mmHg (75.0-100.0); pH 7.196 (7.340-7.450)
--- NOTE | 2021-03-03 18:33 | NUR ---
RESUMED CARE AT 0700. ALL ASSESSMENTS COMPLETED CHARTED. PT SEDATED AND INTUBATED. PT CURRENTLY ON DILAUDED, PROPOFOL, NIMBEX, AND LEVO DRIPS. NO BM. STATTED LOW 90'S MOST OF MY SHIFT, ON 100%. STARTED VITAL HP TUBE FEEDS, AND Q6 WATER FLUSHES.
[2021-03-04] VITALS (19 sets, daily range): BP systolic 103–144; BP diastolic 36–45
[2021-03-04 03:53] LABS: ABSOLUTE BASOPHILS 0.2 thou/uL (0.0-0.2); ABSOLUTE LYMPHOCYTES 0.4 thou/uL (0.8-5.3); ABSOLUTE MONOCYTES 0.8 thou/uL (0.0-1.2); BASOPHILS 0.5 %; HEMATOCRIT 38.7 % (37.0-47.0); HEMOGLOBIN 12.9 gm/dL (12.0-15.0); LYMPHOCYTES 1.1 %; MCH 31.9 pg (26.0-34.0); MCHC 33.3 g/dL (28.0-37.0); MCV 95.7 fL (80.0-100.0); MONOCYTES 2.3 %; MPV 9.3 fl. (7.2-11.1); NUCLEATED RBCS 0 /100WBC; POLYS 96.1 %; RBC 4.04 mil/uL (4.20-5.00); RDW-CV 13.2 % (10.5-14.5); WBC 33.4 thou/uL (4.0-11.0)
[2021-03-04 03:54] LABS: PLATELET COUNT* 181 thou/uL (150-400)
[2021-03-04 04:17] LABS: CALCIUM 6.6 mg/dL (8.5-10.1); CREATININE 1.9 mg/dL (0.6-1.3); MAGNESIUM 2.1 mg/dL (1.8-2.4); PHOSPHORUS* 6.9 mg/dL (2.5-4.9)
[2021-03-04 04:19] LABS: POTASSIUM 4.3 mmol/L (3.5-5.1)
[2021-03-04 08:26] LABS: BE -9.5 mmol/L (-2 to +3); PO2 84.8 mmHg (75.0-100.0)
[2021-03-04 08:28] LABS: PCO2 60.5 mmHg (35.0-45.0); pH 7.142 (7.340-7.450)
[2021-03-04 13:03] LABS: BE -7.9 mmol/L (-2 to +3); PO2 72.4 mmHg (75.0-100.0)
[2021-03-04 13:06] LABS: PCO2 63.5 mmHg (35.0-45.0); pH 7.153 (7.340-7.450)
--- NOTE | 2021-03-04 13:44 | NUR ---
ICU Rounds: Patient remains on vent (FiO2 100% and Peep 5). Continued TF, levo, abx, dilaudid, nimbex, versed, propofol and steroids.
[2021-03-04 16:25] LABS: URINE BILIRUBIN NEGATIVE (Negative); URINE BLOOD NEGATIVE (Negative); URINE CLARITY CLOUDY; URINE COLOR YELLOW; URINE GLUCOSE-RANDOM NEGATIVE (Negative); URINE KETONES NEGATIVE (Negative); URINE LEUKOCYTES-REFLEX NEGATIVE (Negative); URINE NITRITE-REFLEX NEGATIVE (Negative); URINE PROTEIN TRACE (Negative); URINE SPECIFIC GRAVITY 1.025 (1.005-1.030); URINE UROBILINOGEN 0.2 E.U./dl (0.2-1.0)
[2021-03-04 16:33] LABS: HYALINE CASTS 0-3 Few /LPF (None Seen)
[2021-03-04 16:34] LABS: MUCUS None Seen strn/LPF (None Seen); SQUAMOUS 0-3 Few /LPF (0-3)
[2021-03-04 16:35] LABS: AMORPHOUS URATES Few /LPF (None Seen); BACTERIA-REFLEX None Seen /HPF (None Seen); URINE RBC None Seen /HPF (0-2); URINE WBC-REFLEX 0-5 Rare /HPF (0-5); YEAST-REFLEX Present (None Seen)
[2021-03-04 21:46] LABS: BE -7.9 mmol/L (-2 to +3); PO2 60.6 mmHg (75.0-100.0)
[2021-03-04 21:51] LABS: PCO2 75.4 mmHg (35.0-45.0); pH 7.106 (7.340-7.450)
[2021-03-04 23:57] LABS: ALBUMIN 2.5 g/dL (3.4-5.0); CALCIUM 6.6 mg/dL (8.5-10.1); CREATININE 2.7 mg/dL (0.6-1.3); POTASSIUM 4.4 mmol/L (3.5-5.1); TOTAL BILIRUBIN 0.4 mg/dL (<0.1-1.0); TOTAL PROTEIN 5.4 g/dL (6.4-8.2)
[2021-03-05] VITALS (64 sets, daily range): BP systolic 65–176; BP diastolic 12–55
--- NOTE | 2021-03-05 03:42 | NUR ---
03/04/21 ON ASSUMING CARE OF PT O2 SAT 90-92%. PT HAD PREVIOUSLY BEEN 100%. RESIDUALS 250 WITH FEEDING RUNNING AT 20ML/HR. SPOKE WITH DR. CROCKETT. ORDER FOR ABG AND TURN OFF TUBE FEEDING. SEE RESULTS FOR ABG. DECLINING COMPARED TO PREVIOUS. DR CROCKETT NOTIFIED OF CRITICAL RESULTS. INFORMED THIS RN PAGED PULMONARY AT [phone] FOSTER. CHEST X-RAY ORDERED. SEE RESULTS POSTED. STAT LABS ORDERED. WORSENING KIDNEY FUNCTION. SEE RESULTS POSTED. CVP CONNECTED. BICARB PUSH AND GTT, ALBUMIN, LASIX GIVEN ORDERED PER DR FOSTER. SEE 19 PULMONARY PAGED. O2 CONTINUE TO DROP INTO THE 70'S. RT USED AMBU BAG TO TRY AND INCREASE SAT. PT O2 DROP TO 68%. REPOSITON PT 02 IN 70'S WITH GOOD WAVE FORM ON MONITOR. RETURN TO SUPINE POSITON. INCREASE PRESSURE CONTROL ON VENT TO 28. TOOK 20MIN FOR PT O2 TO RETURN TO 87-88% PAGE NOT YET RETURNED
[2021-03-05 05:53] LABS: BE -2.9 mmol/L (-2 to +3); PCO2 48.1 mmHg (35.0-45.0); pH 7.309 (7.340-7.450)
[2021-03-05 05:55] LABS: PO2 43.3 mmHg (75.0-100.0)
[2021-03-05 05:56] LABS: HEMATOCRIT 32.3 % (37.0-47.0); MCH 32.5 pg (26.0-34.0); MCV 95.7 fL (80.0-100.0); MPV 9.5 fl. (7.2-11.1); RBC 3.38 mil/uL (4.20-5.00); RDW-CV 13.4 % (10.5-14.5); WBC 28.9 thou/uL (4.0-11.0)
[2021-03-05 06:07] LABS: ALBUMIN 2.6 g/dL (3.4-5.0); CALCIUM 6.2 mg/dL (8.5-10.1); CREATININE 2.9 mg/dL (0.6-1.3); MAGNESIUM 2.1 mg/dL (1.8-2.4); POTASSIUM 4.4 mmol/L (3.5-5.1); TOTAL BILIRUBIN 0.5 mg/dL (<0.1-1.0); TOTAL PROTEIN 4.8 g/dL (6.4-8.2)
[2021-03-05 07:34] LABS: PCO2 53.2 mmHg (35.0-45.0); PO2 42.7 mmHg (75.0-100.0); pH 7.292 (7.340-7.450)
--- NOTE | 2021-03-05 14:28 | NUR ---
ICU Rounds: Patient remains on vent (FiO2 100% and Peep 0). Patient has gotten progressively worse over the last 24 hours. Temp dialysis cath placed today to start dialysis for volume overload. Patient is currently a NO CODE. Continued levo, dilaudid, abx, nimbex, versed and propofol. updated on plan of care.
[2021-03-06] VITALS (22 sets, daily range): BP systolic 48–130; BP diastolic 33–50
[2021-03-06 07:45] LABS: HEMATOCRIT 37.5 % (37.0-47.0); HEMOGLOBIN 12.4 gm/dL (12.0-15.0); MCH 31.9 pg (26.0-34.0); MCV 96.8 fL (80.0-100.0); MPV 11.5 fl. (7.2-11.1); RBC 3.88 mil/uL (4.20-5.00); RDW-CV 13.9 % (10.5-14.5)
[2021-03-06 07:46] LABS: WBC 51.6 thou/uL (4.0-11.0)
[2021-03-06 08:06] LABS: CALCIUM 6.8 mg/dL (8.5-10.1)
[2021-03-06 09:13] LABS: BE -10.1 mmol/L (-2 to +3)
[2021-03-06 09:18] LABS: PCO2 66.3 mmHg (35.0-45.0); PO2 36.4 mmHg (75.0-100.0); pH 7.105 (7.340-7.450)
--- NOTE | 2021-03-06 11:09 | NUR ---
PT MADE COMFORT CARE POST DISCUSSION WITH THE FAMILY MEMBERS. EXTUBATED COMPASSIONATELY AT 1053 WITH AND G-DTR IN THE ROOM. PT AT 1104.
--- NOTE | 2021-03-06 13:10 | NUR ---
ICU Rounds: Patient was placed on comfort care meausres and was extubated this morning. Patient has since . and grandaughter at bedside. No other CM needs noted at this time.
[2021-03-07 02:06] LABS: HEPATITIS B SURFACE AG Negative (Negative)
--- NOTE | 2021-03-09 09:01 | CON ---
[address] [address] CONSULTATION Name: SEVEN CHILDRESS Room: [address] IN M.R.#: [id number] Admission: 02/22/21 Attend Phys: Tila Arthur MD Discharge: 03/06/21 Date of : 49 Report #: [id number] THIS REPORT FOR: cc: Patricia Brennan MD, Jennifer MD Vasudeva, Amita MD ~ DATE OF CONSULTATION: 03/05/2021 NEPHROLOGY CONSULTATION CONSULTING PHYSICIAN: Dr. Jackson. REASON FOR NEPHROLOGY CONSULTATION: Acute kidney injury, oliguric. REASON FOR ADMISSION: Hypoxia, COVID pneumonia. HISTORY OF PRESENT ILLNESS: This is a 75-year-old female who is morbidly obese, has coronary artery disease, fibromyalgia, hypothyroidism, hypertension, diabetes and other medical problems, had not received COVID vaccine, came in with shortness of breath and congestion. She was very hypoxic on arrival. She was intubated, sedated and initially, her creatinine was 0.9, but her creatinine on the went up to 1.4 and has been going up since and creatinine now is 2.9. She is also not producing much urine. She had about 400 mL of urine output in last 24 hours. She is very hypoxic with her oxygenation of 60% on 100% FiO2. She has been getting intermittent doses of Lasix. She was also receiving ibuprofen until the 02/28. She was also quite hypotensive, blood pressure 70s-80s systolic prior to her creatinine going up. She is getting treatment for COVID pneumonia. ALLERGIES: INCLUDE TYLENOL, CIPROFLOXACIN, CELEXA, CODEINE, HYDROCODONE, LISINOPRIL AND SERTRALINE. PAST MEDICAL AND SURGICAL HISTORY: Includes morbid obesity, coronary artery disease, fibromyalgia, hypothyroidism, GERD, asthma, depression, hyperlipidemia, hypothyroidism, hypertension, diabetes, anxiety, COVID in 02/2021. HOME MEDICATIONS: Include albuterol, ipratropium, famotidine, aspirin, atorvastatin, alprazolam, Cardizem. FAMILY HISTORY: Could not obtain from the patient. SOCIAL HISTORY: According to the chart, the patient does not use alcohol and does not smoke, does not use any illicit drugs. PHYSICAL EXAMINATION: [place] [address] CONSULTATION Name: SEVEN CHILDRESS Room: [address]#: [id number] Admission: 02/22/21 Attend Phys: Tila Arthur MD Discharge: 03/06/21 Date of : 49 Report #: [id number] VITAL SIGNS: Her blood pressure is 141/49, temperature 36.3, pulse rate was 85, respiratory rate was 28, pulse ox was 82% or 60% when I saw her on 100% FiO2. GENERAL: The patient is intubated and sedated. HEENT: Atraumatic, normocephalic. Conjunctivae are normal. Ears, nose, throat normal. She has ET tube in place. NECK: JVD was difficult to assess. CHEST: Bilateral decreased breath sounds. CARDIOVASCULAR: S1, S2 normal. No murmurs. ABDOMEN: Soft, nondistended. EXTREMITIES: Lower extremities: There is at least 2+ edema bilateral lower extremities. NEUROLOGIC FUNCTION: Currently sedated. PSYCHIATRIC: Not able to assess. LABORATORY DATA: White blood cell count is 28.9, hemoglobin was 11.0, platelet count is 113. Potassium was 4.4, BUN 60, creatinine of 2.9. CK was only 31. Her pH was 7.29, 53 CO2 and other labs are reviewed. IMAGING: Chest x-ray, renal ultrasound and other imaging studies were reviewed. ASSESSMENT: 1. Acute kidney injury, oliguric in the setting of COVID pneumonia, ischemic acute tubular necrosis. NSAID use also contributed and the patient was quite hypotensive prior to her creatinine going up. She is fluid overloaded. Urinalysis reviewed. There is trace protein and no hematuria. Renal ultrasound was pretty unremarkable. 2. Acute hypoxic and hypercarbic respiratory failure in the setting of COVID pneumonia. 3. Possible bacterial pneumonia, probably gram negative. 4. Fibromyalgia. 5. Acute on chronic respiratory acidosis with metabolic acidosis. 6. Hypocalcemia. 7. Hyperlipidemia. 8. Type 2 diabetes. Primary team is treating that. 9. Hypotension. Blood pressure is currently controlled. 10. Morbid obesity. PLAN: 1. The patient is critically ill with profound hypoxia, which is because of COVID pneumonia and fluid overload is also contributing. 2. We will dialyze her today after dialysis line placement and we will try to remove some fluid off of her and see if that helps with her oxygenation. Otherwise, her prognosis seems to be very poor. I am not sure how much dialysis is going to help in this situation. [address] [place] [address] CONSULTATION Name: SEVEN CHILDRESS Room: 002-P [facility] IN M.R.#: [id number] Admission: 02/22/21 Attend Phys: Tila Arthur MD Discharge: 03/06/21 Date of : 49 Report #: [id number] 3. Hypocalcemia. Ordered some calcium for her. 4. Avoid NSAIDs, okay to use Lasix as needed. Thank you for this consultation. Discussed in detail with Dr. Jackson, patient's nurse. The patient's prognosis is very poor. I spent 45 minutes in critical care, the time spent was in chart review, placing orders and care coordination. We will follow with you. <ELECTRONICALLY SIGNED> By: Willow Mitchell MD 03/09/21 0901 0832 [id number] Mitchell MD /nt
== END 2021-03-06 11:04 | DRG 208 ==
LOC: M.ERS 12:37 → M.ICU 13:45 → M.TBA-ER 13:45 → M.ORTHSURG 13:45 → M.ICU 02-24 17:17
PROVIDERS: Family Medicine; Internal Medicine; Internal Medicine Critical Care Medicine; Pediatrics; ADMIT Internal Medicine; ATTEND Internal Medicine
PROC: 5A0935A Assistance with Respiratory Ventilation, Less than 24 Consecutive Hours, High Flow/Velocity Cannula (ICD-10-PCS; principal; 2021-02-22)
PROC: XW033E5 Introduction of Remdesivir Anti-infective into Peripheral Vein, Percutaneous Approach, New Technology Group 5 (ICD-10-PCS; principal; 2021-02-22)
PROC: 5A0935A Assistance with Respiratory Ventilation, Less than 24 Consecutive Hours, High Flow/Velocity Cannula (ICD-10-PCS; 2021-02-23)
PROC: 5A09457 Assistance with Respiratory Ventilation, 24-96 Consecutive Hours, Continuous Positive Airway Pressure (ICD-10-PCS; 2021-02-24)
PROC: B548ZZA Ultrasonography of Superior Vena Cava, Guidance (ICD-10-PCS; 2021-02-25)
PROC: 02HV33Z Insertion of Infusion Device into Superior Vena Cava, Percutaneous Approach (ICD-10-PCS; 2021-02-25)
PROC: 5A0935A Assistance with Respiratory Ventilation, Less than 24 Consecutive Hours, High Flow/Velocity Cannula (ICD-10-PCS; 2021-02-26)
PROC: 5A09357 Assistance with Respiratory Ventilation, Less than 24 Consecutive Hours, Continuous Positive Airway Pressure (ICD-10-PCS; 2021-02-26)
PROC: 5A09357 Assistance with Respiratory Ventilation, Less than 24 Consecutive Hours, Continuous Positive Airway Pressure (ICD-10-PCS; 2021-02-27)
PROC: 5A0935A Assistance with Respiratory Ventilation, Less than 24 Consecutive Hours, High Flow/Velocity Cannula (ICD-10-PCS; 2021-02-27)
PROC: 5A0935A Assistance with Respiratory Ventilation, Less than 24 Consecutive Hours, High Flow/Velocity Cannula (ICD-10-PCS; 2021-02-28)
PROC: 5A09357 Assistance with Respiratory Ventilation, Less than 24 Consecutive Hours, Continuous Positive Airway Pressure (ICD-10-PCS; 2021-02-28)
PROC: 5A09357 Assistance with Respiratory Ventilation, Less than 24 Consecutive Hours, Continuous Positive Airway Pressure (ICD-10-PCS; 2021-03-01)
PROC: 5A1945Z Respiratory Ventilation, 24-96 Consecutive Hours (ICD-10-PCS; 2021-03-02)
PROC: 0BH17EZ Insertion of Endotracheal Airway into Trachea, Via Natural or Artificial Opening (ICD-10-PCS; 2021-03-02)
DX: U07.1 COVID-19 (principal); J80 Acute respiratory distress syndrome; J12.82 Pneumonia due to coronavirus disease 2019; J15.6 Pneumonia due to other Gram-negative bacteria; Z68.44 Body mass index [BMI] 60.0-69.9, adult; N17.9 Acute kidney failure, unspecified; E87.2 Acidosis; G47.33 Obstructive sleep apnea (adult) (pediatric); J45.909 Unspecified asthma, uncomplicated; K21.9 Gastro-esophageal reflux disease without esophagitis; I25.10 Atherosclerotic heart disease of native coronary artery without angina pectoris; M79.7 Fibromyalgia; E03.9 Hypothyroidism, unspecified; F32.9 Major depressive disorder, single episode, unspecified; E78.5 Hyperlipidemia, unspecified; F41.9 Anxiety disorder, unspecified; E87.6 Hypokalemia; E66.01 Morbid (severe) obesity due to excess calories; E11.9 Type 2 diabetes mellitus without complications; E83.51 Hypocalcemia; I95.9 Hypotension, unspecified; I10 Essential (primary) hypertension; Z51.5 Encounter for palliative care; Z86.16 Personal history of COVID-19; Z79.899 Other long term (current) drug therapy; Z79.82 Long term (current) use of aspirin; Z88.5 Allergy status to narcotic agent; Z88.8 Allergy status to other drugs, medicaments and biological substances